=== PATIENT | male | born 1970 | race Caucasian/White ===

== ENCOUNTER 2023-11-21 08:25 | Outpatient (CLI) | payer BC, SELFPAY ==
--- NOTE | ~2023-11-21 | MR_ITS ---
MRI of the left foot CLINICAL HISTORY: Osteomyelitis TECHNIQUE: Axial T1-weighted and T2 fat-sat images, sagittal T1-weighted and STIR images, and coronal T1-weighted and T2 fat-sat images were performed. FINDINGS: There is extensive marrow edema throughout the midfoot, affecting the cuboid, cuneiforms, n avicular in particular. There is mild patchy T1 hypointensity, probable early fragmentation of the na vicular. Overall constellation of findings is most suggestive of Charcot foot present osteomyelitis, the latter is difficult to completely exclude. Bone marrow signals of the calcaneus and metatarsals a re unremarkable. Flexor and extensor tendons are intact. There is diffuse nonspecific edematous change of the intrinsi c musculature of the foot. There is a multiseptated ganglion cyst at the region of the calcaneocuboid articulation, measuring 1.7 cm in diameter. There is mild subcutaneous soft tissue edema. No definit e abscess. Probable focal soft tissue ulcer laterally the region of the base the fifth metatarsal. IMPRESSION: Findings most suggestive of Charcot foot involving the midfoot, as detailed above. Osteolysis felt to be less likely, though difficult to completely excluded. Correlate clinically. 1.7 cm multiseptated ganglion cyst the region of the calcaneocuboid articular relation. Nonspecific myositis the plantar muscle tear of the foot. Probable focal soft tissue ulcer laterally at the region of the base the fifth metatarsal. Reviewed, dictated and finalized at [facility]. IMPRESSION: Findings most suggestive of Charcot foot involving the midfoot, as detailed abo ve. Osteolysis felt to be less likely, though difficult to completely excluded. Correlate clinically. 1.7 cm multiseptated ganglion cyst the region of the calcaneocuboid articular r elation. Nonspecific myositis the plantar muscle tear of the foot. Probable focal soft tissue ulcer laterally at the region of the base the fifth metatarsal.
== END 2023-11-21 08:26 ==
PROVIDERS: PCP Family Medicine; Visit Provider Nurse Practitioner Family
DX: M86.172 Other acute osteomyelitis, left ankle and foot (principal)
CPT/HCPCS: 73718

== ENCOUNTER 2024-03-17 09:49 | Outpatient (CLI) | payer BC, SELFPAY ==
--- NOTE | ~2024-03-17 | MR_ITS ---
MRI of the left foot CLINICAL HISTORY: Osteomyelitis TECHNIQUE: Axial T1-weighted, T2 fat-sat, T1 fat-sat images, sagittal T1-weighted and STIR images, an d coronal T1-weighted and T2 fat-sat images were acquired. COMPARISON: 11/21/2023 FINDINGS: There is marked, severe destruction and fragmentation extensive involving the navicular, cu boid, cuneiforms as well as the bases of the first through fifth metatarsals. There is additional ero sive/destructive change involving the talar head and proximal neck and the anterior calcaneus. Given the rapid degree and extent of bony destructive change as compared to prior exam from 11/21/2023, find ings are suspicious for extensive osteomyelitis. Severe Charcot foot with rapid progression of the po tential alternative consideration. There is a large soft tissue ulcer at the lateral aspect of the foot at the approximate level of the cuboid. The ulcer extends down to the level of the bone. There is dorsal subcutaneous soft tissue edema. There is diffuse edematous change of the intrinsic mu sculature of the foot. Flexor and extensor tendons of the toes appear to be grossly intact. IMPRESSION: Marked, severe destructive change, fragmentation, and derangement of alignment involving the navicula r, cuboid, cuneiforms, bases of all 5 metatarsals, with additional erosive/destructive change of the talar head and proximal neck and anterior calcaneus. Given the extent and rapid degree of progression since 11/21/2023, findings are suspicious for extensive, severe osteomyelitis. Concomitant Charcot fo ot would be an additional consideration. Large soft tissue ulcer at the lateral foot at the level of the cuboid extending to the level of bone . Reviewed, dictated and finalized at location [facility]. IMPRESSION: Marked, severe destructive change, fragmentation, and derangement of alignment involving the navicular, cuboid, cuneiforms, bases of all 5 metatarsals, with a dditional erosive/destructive change of the talar head and proximal neck and an terior calcaneus. Given the extent and rapid degree of progression since 024, findings are suspicious for extensive, severe osteomyelitis. Concomitant C harcot foot would be an additional consideration. Large soft tissue ulcer at the lateral foot at the level of the cuboid extendin g to the level of bone.
== END 2024-03-17 09:50 ==
LOC: GOSHIMG 09:50
PROVIDERS: PCP Family Medicine; Visit Provider Nurse Practitioner Family
DX: M86.172 Other acute osteomyelitis, left ankle and foot (principal)
CPT/HCPCS: 73718

== ENCOUNTER 2024-12-07 09:00 | Outpatient (CLI) | payer BC, SELFPAY ==
--- NOTE | ~2024-12-07 | MR_ITS ---
MRI of the right shoulder Technique: Axial proton-density fat-sat images, coronal proton density fat-sat and T2 fat-sat images, and sagittal T1-weighted and T2 fat-sat images were acquired. Clinical History: Pain Findings: There is moderate AC joint degenerative change. Coracoclavicular, coracoacromial, and corac ohumeral ligaments are intact. Supraspinatus and infraspinatus tendons noted moderate tendinosis. There is a 5 mm low-grade articula r surface partial tear at the distal supraspinatus tendon insertion posteriorly. Subscapularis tendon noted is moderate tendinosis. Tendon of the long head of the biceps is intact. Suspected posterior labral tear at the equator. Inferior glenohumeral ligament is intact. There is a small glenohumeral joint effusion. No significan t degenerative change of the glenohumeral joint. No fluid distention of the subacromial/subdeltoid bu rsa. No muscle atrophy or edema. Impression: Rotator cuff tendinosis. 5 mm low-grade articular surface partial tear of the distal supraspinatus te ndon insertion. Moderate AC joint degenerative change. Suspected posterior labral tear at the equator. Reviewed, dictated and finalized at location . Impression: Rotator cuff tendinosis. 5 mm low-grade articular surface partial tear of the d istal supraspinatus tendon insertion. Moderate AC joint degenerative change. Suspected posterior labral tear at the equator.
== END 2024-12-07 09:01 | disposition home or self-care (01) ==
PROVIDERS: PCP Family Medicine; Visit Provider Family Medicine
DX: M19.011 Primary osteoarthritis, right shoulder (principal)
CPT/HCPCS: 73221